=== PATIENT | female | born 1960 | race Caucasian/White ===

== ENCOUNTER 2022-07-28 22:36 | Observation (INO) ==
[2022-07-28 22:59] LABS: Basophils # 0.1 10*3/uL (0.0-0.2); Basophils % 0.7 % (0.0-0.8); Eosinophils # 0.2 10*3/uL (0.0-0.87); Eosinophils % 1.8 % (0.00-10.9); Hematocrit 40.7 VOL% (35.7-47.0); Hemoglobin 13.5 GM/DL (12.0-16.0); Immature Granulocytes % 0.2 %; Immature Granulocytes Absolute 0.03 #; Lymphocytes # 7.3 10*3/uL (1.4-4.0); Lymphocytes % 57.8 % (21.3-54.2); Mean Corpuscular HGB Conc 33.2 GM/DL (32-36); Mean Corpuscular Volume 88.5 FL (87-102); Mean Platelet Volume 8.7 FL (9.6-12.0); Monocytes # 0.9 10*3/uL (0.11-0.8); Neutrophils % 32.5 % (38.7-73.9); Platelet Count 392 T/CUMM (130-400); Red Cell Distribution Width 13.6 % (9.3-17.3); White Blood Count 12.6 T/CUMM (4-12)
[2022-07-28 23:11] LABS: INR 0.9; PT Patient Result 10.2 SECS (10.1-12.1); Partial Thromboplastin Time 23.3 SECS (23.7-32.9)
[2022-07-28 23:28] LABS: Eosinophils 3 % (0-10); Lymphocytes 56 % (20-55); Platelet Estimate Normal; Total Cells Counted 100
[2022-07-28 23:52] LABS: Alanine Aminotransferase 19 U/L (13-56); Albumin 3.5 G/DL (3.4-5.0); Alkaline Phosphatase 87 U/L (45-117); Aspartate Amino Transferase 15 U/L (0-37); Bilirubin,Total < 0.39 MG/DL (0.20-1.00); Blood Urea Nitrogen 13 MG/DL (7-18); Carbon Dioxide 22 MMOL/L (21-32); Chloride 104 MMOL/L (98-107); Glucose 183 MG/DL (74-106); Osmolality,Calculated 281.5 MOS/KG (273-304); Potassium 2.9 MMOL/L (3.5-5.1); Sodium 139 MMOL/L (136-145); Total Protein 6.6 G/DL (6.4-8.2)
[2022-07-29] MEDS ORDERED: POTASSIUM CHLORIDE 20 MEQ TABLET PO STA (01:01)
[2022-07-29] MEDS ORDERED: ASPIRIN EC 325 MG TABLET PO STA (01:20)
[2022-07-29] MEDS ORDERED: MORPHINE 2 MG/1 ML SYRINGE IV PRN (01:39)
[2022-07-29] MEDS ORDERED: ACETAMINOPHEN 325 MG TABLET PO PRN (01:39)
[2022-07-29] MEDS ORDERED: GLUCAGON 1 MG VIAL IM PRN (01:39)
[2022-07-29] MEDS ORDERED: NITROGLYCERIN SL 0.4 MG TABLET SL PRN (01:39)
[2022-07-29] MEDS ORDERED: ONDANSETRON 4 MG/2 ML VIAL IV PRN (01:39)
[2022-07-29] MEDS ORDERED: DEXTROSE 10% 250 ML BAG IV PRN (01:39)
[2022-07-29] MEDS ORDERED: POTASSIUM CHLORIDE RIDER 10 MEQ/100 ML PREMIX IV PRN (01:44)
[2022-07-29] MEDS ORDERED: MAGNESIUM SULF RIDER 4 GM/100 ML PREMIX IV PRN (01:44)
[2022-07-29] MEDS ORDERED: MAGNESIUM SULF RIDER 2 GM/50 ML PREMIX IV PRN (01:44)
[2022-07-29] MEDS ORDERED: POTASSIUM CHLORIDE 20 MEQ TABLET PO PRN (01:44)
[2022-07-29] MEDS ORDERED: ENOXAPARIN 60 MG/0.6 ML SYRINGE SUBCUT ONE (02:00)
[2022-07-29 04:00] LABS: Basophils # 0.1 10*3/uL (0.0-0.2); Basophils % 0.9 % (0.0-0.8); Eosinophils # 0.1 10*3/uL (0.0-0.87); Eosinophils % 1.2 % (0.00-10.9); Hematocrit 39.1 VOL% (35.7-47.0); Hemoglobin 13.1 GM/DL (12.0-16.0); Immature Granulocytes % 0.2 %; Immature Granulocytes Absolute 0.02 #; Lymphocytes # 4.3 10*3/uL (1.4-4.0); Lymphocytes % 42.8 % (21.3-54.2); Mean Corpuscular HGB Conc 33.5 GM/DL (32-36); Mean Corpuscular Volume 87.1 FL (87-102); Mean Platelet Volume 8.7 FL (9.6-12.0); Monocytes # 0.6 10*3/uL (0.11-0.8); Monocytes % 5.6 % (1.7-12.7); Neutrophils % 49.3 % (38.7-73.9); Platelet Count 341 T/CUMM (130-400); Red Blood Count 4.49 MC/CUMM (3.8-5.5); Red Cell Distribution Width 13.7 % (9.3-17.3)
[2022-07-29 04:17] LABS: Calcium 8.7 MG/DL (8.5-10.1); Osmolality,Calculated 281.1 MOS/KG (273-304); Potassium 3.6 MMOL/L (3.5-5.1)
[2022-07-29 04:26] LABS: Atypical Lymphocytes Few
[2022-07-29 04:27] LABS: Platelet Estimate Normal
[2022-07-29 04:31] LABS: Risk Ratio 3.73; Thyroid Stimulating Hormone 1.46 uIU/ml (0.358-3.74)
[2022-07-29 07:31] LABS: PT Patient Result 10.6 SECS (10.1-12.1); Partial Thromboplastin Time 30.9 SECS (23.7-32.9)
[2022-07-29] MEDS ORDERED: ASPIRIN 325 MG TABLET PO SCH (09:00)
[2022-07-29 11:22] LABS: Barbiturates Screen,Urine Negative (Negative); Benzodiazepines Screen,Urine Negative (Negative); Cannabinoid Screen,Urine Positive (Negative); Opiate Screen,Urine Negative (Negative); Phencyclidine Screen,Urine Negative (Negative)
[2022-07-29 12:12] VITALS: BP 168/79
== END 2022-07-29 13:02 | disposition home or self-care (01) ==
LOC: N.ED 22:36 → N.EDINP 22:36 → N.2W 07-29 08:00
PROVIDERS: ADMIT Internal Medicine; ATTEND Internal Medicine